=== PATIENT | female | born 1945 | race Caucasian/White ===

== ENCOUNTER 2016-12-31 18:03 | Observation (INO) | payer MEDICARE, OTHER ==
[~2016-12-31] VITALS: Ht 144.8 cm; Wt 67.9 kg
[2016-12-31 18:12] VITALS: BP 136/83; PULSE 89; RESP 18; O2SAT 95
--- NOTE | 2016-12-31 18:19 | ED.REPORT ---
HPI-Neurologic Deficit Date of Service Dec 31, 2016 ED Provider: Froilan Toledo MD Pt is a 71 year old female with a hx of HTN and Rheumatoid arthritis presenting to the ED complaining of sudden onset speech problems at 1730 tonight just after eating dinner. The pt was unable to speak at all. Her reports that she has been sick for the past week and a half, and has been fighting a foot ulcer. On arrival, she states that she feels better, and is able to speak. Her reports that she has had a previous similar episode in the past. Denies headache, numbness, or any other symptoms at this time. She does report that a few days ago she had an aura around her eyes which she states she gets when she has migraines, but denies any today. She denies being on any blood thinners, and does not take Aspirin daily. Pt regularly takes Lisinopril and Atenolol, but has been out of her high blood pressure medication for the past week. She denies any problems with bleeding ulcers or aneurysms in the past. Associated symptoms include fatigue, and problems finding the right words for the past couple weeks. Nursing Notes Stated Complaint: NEUROLIGICAL PROBLEMS Chief Complaint: Stroke Symptoms Nursing Notes Reviewed: Yes Allergies: Coded Allergies: morphine (Verified Allergy, Severe, ITCHY,DIFF WITH SWALLOWING, 05/05/09) Penicillins (Verified Allergy, Unknown, Rash,Itching,, 01/01/17) Scheduled Acetaminophen (Tylenol Arthritis) 650 Mg Tablet.er 650 MG PO QAM Acetaminophen (Tylenol Arthritis) 650 Mg Tablet.er 1,300 MG PO HS Atenolol (Atenolol) 25 Mg Tablet 25 MG PO QAM Doxylamine Succinate (Unisom) 25 Mg Tablet 25 MG PO HS Leflunomide (Leflunomide) 20 Mg Tablet 20 MG PO QAM Levothyroxine (Levothyroxine) 112 Mcg Tablet 112 MCG PO QAM Lisinopril (Lisinopril) 20 Mg Tablet 20 MG PO QAM General Time Seen by Provider: 18:11 Chief Complaint Other (Unable to speak) Hx Obtained From: Patient, Spouse Arrived By: Ambulance Sudden in Onset?: Yes Onset Occurred: 46 - 59 minutes ago Symptom Duration: Since onset Progression Since Onset: Rapidly improving Severity: Current: No pain currently Severity: Maximum: No pain Recent Healthcare: No recent doctor visit, No recent hospitalization Similar Sx Previous: Yes Risk Factors TPA Administration/Criteria Stroke Thrombolytic Therapy : TPA Considered: Yes Disc Risk/Benefit/Alternatives: Yes TPA Administered Intravenously: No, informed refusal Inclusion Criteria: 18 years or older Relative Exclusion Crit: Rapidly improv stroke sym Past Medical History Past Medical History HTN, Rheumatoid arthritis with foot ulcer Past Surgical History denies Smoking History Unknown if Ever Smoker Social History Other Social History: Good social support, Ambulatory Status Independent Review of Systems Constitutional: Reports: Fatigue Eyes: Denies: Blurred bilateral, Visual loss bilateral Neurologic: Reports: Unable to speak, Denies: Headache, Numbness, Slurred speech, Vision change Complete sys rev & neg: except as marked. Physical Exam Initial Vital Signs Vital Signs (First) Date Time Temp Pulse Resp B/P Pulse Ox O2 Delivery O2 Flow Rate FiO2 12/31/16 18:12 37.1 89 18 136/83 95 Room Air Initial VS: Reviewed ENT: Mucous membranes moist, Conjunctiva normal, No scleral icterus Neck: Supple, Non-tender, Full range of motion Abdomen / GI: Soft, Non-tender, No guarding, No rebound, No distention Extremities: Vascular intact, Neuro intact, No swelling, No tenderness Skin: Warm, Dry, No cyanosis Psychiatric: Mood/affect normal, Behavior normal, Normal thought content General/Constitutional: Awake, Alert, No acute distress, Well hydrated Head / Eyes: Atraumatic, Normocephalic, PERRL, EOMI, No nystagmus Right sided facial palsy Respiratory / Chest: Atraumatic, Breath sounds NL, Breath sounds = bilat, No respiratory distress Cardiovascular: Heart rate NL, Regular rhythm, Heart sounds NL, No gallop, No murmurs, No rubs Neurologic: Oriented X3, No motor deficits, No sensory deficits, CN II - XII intact, Reflexes equal bilat Interpretation & Diagnostics Interpretation & Diagnostics: CT ANGIO HEAD AND NECK: IMPRESSION: 1. No hemodynamically significant stenoses or occlusions of the central intracranial vasculature. 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 2. No hemodynamically significant lesions of the extracranial neck vasculature. Dictated by: Quentin Saini M.D. on 12/31/2016 at 19:54 Lab Results Interpretation Result Diagram: 12/31/16 1830 12/31/16 1830 Test 12/31/16 18:30 White Blood Count 6.2th/mm3 (3.8-10.1) Red Blood Count 3.80mil/mm3 (3.90-5.20) Hemoglobin 11.8g/dL (12.0-15.6) Hematocrit 35.6% (35.0-46.0) Mean Corpuscular Volume 93.7fL (81-100) Mean Corpuscular Hemoglobin 31.1pg (27.0-35.0) Mean Corpuscular Hemoglobin Concent 33.1% (32.0-37.0) Red Cell Distribution Width 14.3% (12.3-15.4) Platelet Count 206bil/L (150-400) Neutrophils (%) (Auto) 64.5% (40-74) Lymphocytes (%) (Auto) 20.5% (14-46) Monocytes (%) (Auto) 8.8% (4-12) Eosinophils (%) (Auto) 4.9% (0-5) Basophils (%) (Auto) 1.1% (0-3) Prothrombin Time 10.7sec (8.1-12.5) Prothromb Time International Ratio 1.00ratio Activated Partial Thromboplast Time 23.8sec (22.8-33.0) Sodium Level 137mEq/L (134-144) Potassium Level 4.3mEq/L (3.5-5.2) Chloride Level 101mEq/L (97-108) Carbon Dioxide Level 20mmol/L (18-29) Blood Urea Nitrogen 12mg/dL (8-27) Creatinine 0.76mg/dL (0.57-1.00) Estimat Glomerular Filtration Rate 107mL/min (>59) Glucose Level 127mg/dL (60-99) Calcium Level 8.7mg/dL (8.5-10.1) Magnesium Level 1.9mg/dL (1.6-2.6) Total Bilirubin 0.6mg/dL (0.0-1.2) Aspartate Amino Transf (AST/SGOT) 115U/L (0-50) Alanine Aminotransferase (ALT/SGPT) 91U/L (0-32) Alkaline Phosphatase 71U/L (25-165) Total Protein 6.4g/dL (6.4-8.4) Albumin 3.5g/dL (3.4-5.0) Procalcitonin 0.11ng/mL (0.00-0.08) Hold Parker Top Tube Received (Received) ECG Interpretation ECG Interpretation: Left axis deviation Time: 18:54 Normal ECG Interpretation: Normal rate (82), Normal sinus rhythm CT Head Interpretation IMPRESSION: No acute intracranial abnormalities. Findings were discussed with Dr. Toledo at 1827 hrs on December 31, 2016. This study fulfills neurological imaging criteria for inclusion or exclusion of acute stroke therapies based on available published neurological imaging guidelines. Dictated by: Quentin Saini M.D. on 12/31/2016 at 18:23 Study: Head CT no contrast Interpretation / Wet Read by: Interpret - Radiologist, Discussed w radiologist Re-Eval/Medical Decision Med Decision/Clinical Course 71 year old female with Rfacial droop and aphasia. Presented quickly after onset and was improving on presentation. After a lengthy discussion, we elected not to given TPA as she was improving rapidly. Also had an episode of recurrent "confusion" with trouble with word finding and orientation that resolved while here. Asprin given. Admit to hospitalist as TIA Re-Evaluation/Progress #1: Time of Eval: 18:23 Patient Status: Condition improved Re-Evaluation/Progress Note: Pt is back from CT. Pt states that she feels like she can talk fine now. Re-Evaluation/Progress #2: Time of Eval: 18:29 Patient Status: Condition improved Re-Evaluation/Progress Note: Performed NIH stroke scale. Had a long discussion of the risks and benefits associated with TPA. Family had numerous questions which were answered. Re-Evaluation/Progress #3: Time of Eval: 18:57 Patient Status: Condition improved Re-Evaluation/Progress Note: Checked back with the family and they indicate they wish not to have TPA but consent to further evaluation and admission. Re-Evaluation/Progress #4: Time of Eval: 20:18 Patient Status: Condition improved Re-Evaluation/Progress Note: Pt facial droop resolved. Discussed CT Angio results and plan for admission. Re-Evaluation/Progress #5: Time of Eval: 20:28 )( Re-Eval Neurologic Exam: Disoriented to place Patient Status: Condition improved Re-Evaluation/Progress Note: Pt is having some confusion. Definitely having some trouble with word finding, no motor difficulties noted. Re-Evaluation/Progress #6: Time of Eval: 20:59 Patient Status: Condition improved Re-Evaluation/Progress Note: Discussed consultation with Dr. Savage and plan to go ahead and admit her. Family reports that her symptoms have seemed to clear up again. NIH Stroke Scale : Level of Consciousness: Alert and responsive (0) Ask Month & Age: Both questions right (0) Open/Close Eyes/Hand Strip Tank Tender: Performs both tasks (0) Horizontal EO Movements: None (0) Visual Schaeffer: No visual loss (0) Facial Palsy: Minor paralysis (1) Right Arm Motor Drift (10s): No drift 10 sec (0) Left Arm Motor Drift (10s): No drift 10 sec (0) Right Leg Motor Drift (5s): No drift 5 sec (0) Left Leg Motor Drift (5s): No drift 5 sec (0) Limb Ataxia FNF/Heel-Arevalo: No ataxia (0) Sensation (Arms/Legs/Face): No sensory loss (0) Language Aphasia: Loss fluency ID matls (1) Dysarthria: No dysarthria, normal (0) Extinction/Inattention: No exctinct/inattent (0) NIHSS Score: 2 Time NIHSS Performed: 18:29 Consultation #1: Referral / Consult Name: Evonne Parada DO Consulted With: Hospitalist Call Returned at: 20:32 Note: Pt condition is changing, need to speak to [facility] before admission. Consultation #2: Consulted With: Neurology Call Returned at: 20:49 Note: Dr. Papi Savage at [facility]. Low probability of profound deficit, good recovery potential. TPA not definitely contraindicated but it does not seem to be likely to benefit. Consultation #3: Referral / Consult Name: vEonne Parada DO Consulted With: Hospitalist Call Returned at: 21:03 Quality Officer: Will see patient, Agrees with plan, Accepts admit Counseled Regarding: Diagnosis, Lab results, Need for follow-up, When/why to return to ED Discharge & Departure Impression: Primary Impression: Transient ischemic attack Transient cerebral ischemia type: unspecified Qualified Code: G45.9 - Transient cerebral ischemic attack, unspecified Disposition: ADMITTED TO HOSPITAL Discharge Condition All VS Reviewed: Yes Condition: Improved Referrals: Carlos Zapien MD Crit Care Except Billable Proc Time Spent: 30-74 minutes Services Performed: Patient management by me, Time spent at bedside, Reviewing test results, Reviewing imaging, Discussing patient care, Documentation in record, Time with fam/surrogate Scribe Attestation Portions of this note were transcribed by Latoya Eldridge. I, Dr. Toledo personally performed the history, physical exam and medical decision-making; I reviewed and confirmed the accuracy of the information in the transcribed note. Signed by : Cirilo Luu, 12/31/2016 at 2130. copies to: Carlos Zapien MD, Donald L MD Dec 31, 2016 18:19 LATOYA ELDRIDGE Dec 31, 2016 18:28
[2016-12-31 18:30] VITALS: BP 151/62; PULSE 90; RESP 18; O2SAT 98
--- NOTE | 2016-12-31 18:30 | DRSVH ---
PROCEDURE: CT BRAIN (TPA) ([id number]) INDICATIONS: 71 year-old female with aphasia. TECHNIQUE: Noncontrast 4.5 mm thick angled axial sections acquired from the foramen magnum to the vertex, with c oronal reformats. COMPARISON: None. FINDINGS: Image quality: Excellent. CSF spaces: Basal cisterns are patent. No extra-axial fluid collections. Ventricles are normal in size and shape. Brain: No midline shift. No intracranial masses or hemorrhage. [place]-white matter interface is norm al. Skull and face: Calvarium and visualized facial bones are intact, without suspicious lesions. 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 Sinuses: Visualized sinuses and mastoids are clear. IMPRESSION: No acute intracranial abnormalities. Findings were discussed with Dr. Toledo at 1827 hrs on December 31, 2016. This study fulfills neurological imaging criteria for inclusion or exclusion of acute stroke therapie s based on available published neurological imaging guidelines. Dictated by: Quentin Saini M.D. on 12/31/2016 at 18:23 Approved by: Quentin Saini M.D. on 12/31/2016 at 18:28
[2016-12-31 18:40] LABS: BASOPHILS % (AUTO) 1.1 % (0-3); EOSINOPHILS % (AUTO) 4.9 % (0-5); MONOCYTES % (AUTO) 8.8 % (4-12); Mean Corpuscular Hemoglobin 31.1 pg (27.0-35.0); Mean Corpuscular Volume 93.7 fL (81-100); NEUTROPHILS % (AUTO) 64.5 % (40-74); Platelet Count 206 bil/L (150-400)
[2016-12-31 19:04] LABS: TROPONIN T < 0.010 ug/L (0.0-0.011)
--- NOTE | 2016-12-31 20:09 | DRSVH ---
PROCEDURE: CT ANGIO HEAD AND NECK (P) INDICATIONS: 71 year-old female with right facial droop. TECHNIQUE: Pre-contrast 4.5 mm thick sections acquired from the foramen magnum to the vertex. After the adminis tration of intravenous contrast, 1 mm thick sections acquired from the aortic arch through the [place] of [place]. Post-contrast 4.5 mm thick sections then re-acquired from the foramen magnum to the vert ex. 3-dimensional [id number] (MIP) and/or volume rendering reformats were acquired of the central intracranial vasculature and neck separately. For radiation dose reduction, the foll owing was used: automated exposure control, adjustment of mA and/or kV according to patient size. COMPARISON: [facility], CT, BRAIN ([facility]), 12/31/2016, 18:20. FINDINGS: Image quality: Excellent. BRAIN: CSF spaces: Ventricles are normal in size and shape. Basal cisterns are patent. No extra-axial flu id collections. Brain: No midline shift. No intracranial bleeds or masses. [place]-white matter interface appears int act. Skull and face: Calvarium and facial bones appear intact, without suspicious lesions. Orbits appear normal. Sinuses: Sinuses and mastoids are clear. HEAD CT ANGIOGRAPHY: Anterior circulation: Intracranial internal carotid arteries are normal in size and flow. The flow within the paired anterior cerebral arteries is normal and symmetric. The flow within the middle cer ebral arteries is normal and symmetric. The anterior communicating artery is seen. No aneurysms are seen. Posterior circulation: Visualized portions of the vertebral arteries demonstrate normal caliber, and join to form a normal appearing basilar artery. The right vertebral artery is dominant. 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 No aneurysms are seen. NECK CT ANGIOGRAPHY: Carotid system: The great vessels demonstrate a conventional anatomy as they arise from the aortic a [facility]. The origins of the common carotid arteries appear patent. The common carotid arteries demonstr ate normal caliber and courses. The right carotid bifurcation appears widely patent. There is minimal atherosclerotic plaque at the origin of the left internal carotid artery. The internal carotid arter ies demonstrate normal calibers and courses more superiorly. Posterior circulation: The right vertebral artery is dominant. The origins of the vertebral arteries both appear widely patent. There is a direct aortic arch origin of the left vertebral artery, a vas cular anatomic variant. The more superior extracranial portions of both vertebral arteries demonstrat e normal courses. They join to form a normal appearing basilar artery. Soft tissues: Visualized neck soft tissues demonstrate no suspicious abnormalities. 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 No suspicious bony lesions. There is mild C4-C5 retrolisthesis from significant mid and lower cervical spine disc degeneration. IMPRESSION: 1. No hemodynamically significant stenoses or occlusions of the central intracranial vasculature. 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 2. No hemodynamically significant lesions of the extracranial neck vasculature. Dictated by: Quentin Saini M.D. on 12/31/2016 at 19:54 Approved by: Quentin Saini M.D. on 12/31/2016 at 20:07
[2016-12-31 21:42] VITALS: BP 154/72; PULSE 72; RESP 16; O2SAT 95
[2016-12-31] MEDS ORDERED: Alum-Mag Hydrox-Simeth 30 mL Suspension PO PRN ×2 (21:50→22:10)
[2016-12-31] MEDS ORDERED: Ondansetron 2 mg/mL 2 mL Inj IVPUSH PRN ×2 (21:50→22:10)
[2016-12-31] MEDS ORDERED: Polyethylene Glycol (PEG) 17 Gm Powder PO PRN (22:10)
[2016-12-31] MEDS ORDERED: ACET-2766 PO ×2 (22:16)
[2016-12-31] MEDS ORDERED: LISI-567 PO (22:16)
[2016-12-31] MEDS ORDERED: LEVO100T6 PO (22:16)
[2016-12-31 22:54] LABS: Magnesium 1.9 mg/dL (1.6-2.6)
--- NOTE | 2016-12-31 23:04 | NUR ---
Admit to room 3022 @ 22:00 for TIA. VSS sat'ing 95 on RA. Up SBA with FWW for last 2 weeks only as baseline ambulation is up independent. Oriented to room and POC on whiteboard. Fall hx 12/26, bedalarm on for safety, fall precautions posted, discussed with family. Alert and Oriented x3. Pain 0/10, no N/V. Call light within reach.
[2016-12-31 23:05] VITALS: BP 163/83; PULSE 73; RESP 18; O2SAT 97
[2016-12-31] MEDS ORDERED: LEFL20TA18 PO (23:17)
[2016-12-31] MEDS ORDERED: LEVO112T4 PO (23:17)
[2016-12-31] MEDS ORDERED: ATEN25TA PO (23:17)
[2016-12-31] MEDS ORDERED: DOXY25TA46 PO (23:18)
[2017-01-01] VITALS (8 sets, daily range): BP systolic 130–177; BP diastolic 78–97; PULSE 72–89; RESP 16–20; O2SAT 91–98
[2017-01-01 00:08] LABS: APPEARANCE,URINE CLEAR (CLEAR,HAZY); COLOR,URINE DARK YELLOW (YELLOW); OCCULT BLOOD,URINE NEGATIVE (NEGATIVE); UROBILINOGEN,URINE NORMAL (NORMAL)
--- NOTE | 2017-01-01 00:20 | PCM.HPMED ---
Subjective Date of Service Jan 01, 2017 Primary Provider: Admitting Physician: Evonne Parada DO Primary Care Physician: Carlos Zapien MD Attending Physician: Evonne Parada DO Admit Status: From the Emergency Department, Remote Telemetry Chief Complaint: "trouble talking" History of Present Illness: Mrs. Charlotte Castillo is a 71 year old woman with history of hypertension, rheumatoid arthritis, recurrent foot ulcers, and hypothyroidism who presented to the emergency department for trouble speaking that started this evening around 5:00 PM after eating dinner. She was not able to speak at all. This prompted her to take her to the hospital. She reports that when she was a child she would have episodes of trouble speaking with associated blurred vision. She denies numbness or tingling, blurred vision today, or focal weakness. She reported previous visual auras related to migraines a few days ago.Two weeks ago, her left foot developed an ulcer beneath her left pinky toe. It started to drain so she went to her doctor's office and was started on 2 antibiotics. One of the antibiotics contained penicillin. She developed a generalized itchy rash, so she stopped taking both antibiotics after less than a week. She then developed diarrhea about 1 week ago. She states that every time that she would eat or drink anything, then she would have a bowel movement. She decreased the amount that she ate and drank. She also became generally weak and started to need to use a walker to get around the house. Previously, she ambulated independently. She decided to stay with her sister so that her sister could take care of her. Her sister reports that the patient fell 1 week ago and hit the back of her head, and the patient has been shaking and has chills. She has been having trouble finding words for the past 1 week. She took Benadryl this morning because although her rash has improved, she still feels itchy. She is taking Imodium, which has stopped her diarrhea, and is drinking a lot of Gatorade. She had associated dysphagia today. She does not have headache, chest pain, dyspnea, sore throat, cough, abdominal pain, nausea, vomiting, dysuria, hematochezia, or melena. In the emergency department, her speech improved after she returned from the initial CT scan, and she initially had right sided facial droop on exam. TPA was then discussed with the family and they wished to not proceed with TPA. Her facial droop then later resolved. The patient then developed confusion and trouble with word finding, which also later resolved. Neurology at [facility] was consulted, and they recommended that TPA was not definitely contraindicated but it does not seem to be likely to benefit. NIHSS score at 18: 26 was 2. She was given a full dose aspirin 324 mg in the ED. PCP: Dr. Zapien Review of Systems: A comprehensive review of systems was conducted with the patient and found to be negative except as above in the History of Present Illness. Allergies Coded Allergies: morphine (Verified Allergy, Severe, ITCHY,DIFF WITH SWALLOWING, 05/05/09) Penicillins (Verified Allergy, Unknown, Rash,Itching,, 01/01/17) Home Medications Acetaminophen 650 mg once daily in the morning and 1,300 mg once daily at bedtime Atenolol 25 mg once daily in the morning Doxylamine succinate 25 mg once daily at bedtime Leflunomide 20 mg once daily in the morning Levothyroxine 112 mcg once daily in the morning Lisinopril 20 mg once daily in the morning Medications based on medication reconciliation performed by pharmacist in the hospital H Hypertension Rheumatoid arthritis, she follows with [facility] in [place], [place] Hypothyroidism Foot ulcers, history of prior MRSA right foot ulcer years ago that required surgical debridement Surgical History Bilateral total knee arthroplasty Cholecystectomy 20 years ago Appendectomy at 10 years old Family History Mother and father alive in good health, both are 94 years old Two sisters alive in good health Patient denies family history of heart disease and diabetes mellitus Social History Hx Alcohol Use: No Hx Substance Use: No Hx Tobacco Use: No Smoking Status: Former Smoker (quit 36 years ago), Unknown if Ever Smoker Living Arrangement: with Family (with at home) Exam Vital Signs Vital Sign - Last Date Time Temp Pulse Resp B/P Pulse Ox O2 Delivery O2 Flow Rate FiO2 12/31/16 23:05 36.3 73 18 163/83 97 Room Air Exam General: Elderly woman lying in bed in no acute distress, well-developed, well- nourished, appropriately interactive HEENT: Normocephalic, atraumatic. External ears without defect. Pupils equal, round, and reactive to light and accommodation. Anicteric sclerae, moist conjunctivae, and no lid lag. Oropharynx free of erythema and cobble stoning with moist mucosa. Neck: Supple with full range of motion. No jugular venous distension. No bruits. No lymphadenopathy or thyromegaly. Cardiovascular: Regular rate and rhythm with grade II/ systolic ejection murmur with no rubs or gallops appreciated. Pulmonary: Clear to auscultation bilaterally with no crackles, wheezes, or rhonchi. Normal respiratory effort with no use of accessory muscles. Abdomen: Hyperactive bowel tones present. Soft, Mild diffuse tenderness, nondistended. No hepatosplenomegaly or masses appreciated. Extremities: Severe bilateral hand ulnar deviation and bilateral hammer toes. Bilateral mild non-pitting edema of lower extremity up to the knee. Skin: Normal temperature, turgor, and texture. Left foot ulcers at base of 2nd MTP and 5th MTP that appear well healing without erythema, warmth, tenderness, or drainage. Neurological: Cranial nerves grossly intact. Grossly normal muscle strength, tone, and bulk. Coordination and sensory function within normal limits. Psychiatric: Normal mood and affect. Alert and oriented to person, place, and time. Lab and Diagnostics Labs Item Value Date Time Calcium Level 8.7 mg/dL 12/31/160 Total Bilirubin 0.6 mg/dL 12/31/160 Aspartate Amino Transf (AST/SGOT) 115 U/L H 12/31/16 1830 Alanine Aminotransferase (ALT/SGPT) 91 U/L H 12/31/16 1830 Alkaline Phosphatase 71 U/L 12/31/16 1830 Troponin T < 0.010 ug/L 12/31/161829 Total Protein 6.4 g/dL 12/31/16 1830 Albumin 3.5 g/dL 12/31/16 1830 Procalcitonin 0.11 ng/mL H 12/31/16 1830 Magnesium Level 1.9 mg/dL 12/31/161829 Urine Color Dark yellow 12/31/162339 Urine Appearance Clear 12/31/162339 Urine pH 5.0 12/31/160 Urine Specific [place] 1.010 12/31/162339 Urine Protein Negative mg/dL 12/31/162339 Urine Glucose (UA) Negative mg/dL 12/31/162339 Urine Ketones Negative mg/dL 12/31/162339 Urine Occult Blood Negative 12/31/162339 Urine Nitrite Negative 12/31/162339 Urine Bilirubin Negative 12/31/162339 Urine Leukocyte Esterase Negative 12/31/162339 Urine RBC 0-2 /hpf 12/31/162339 Urine WBC 0-5 /hpf 12/31/162339 Urine Bacteria Few /hpf 12/31/162339 Urine Culture Reflexed Not indicated 12/31/162339 Result Diagram: 12/31/16 1830 12/31/161829 X-Rays, CTs and MRIs PROCEDURE: CT BRAIN (TPA) IMPRESSION: No acute intracranial abnormalities. Findings were discussed with Dr. Toledo at 1827 hrs on December 31, 2016. This study fulfills neurological imaging criteria for inclusion or exclusion of acute stroke therapies based on available published neurological imaging guidelines. Approved by: Quentin Saini M.D. on 12/31/2016 at 18:28 PROCEDURE: CT ANGIO HEAD AND NECK IMPRESSION: 1. No hemodynamically significant stenoses or occlusions of the central intracranial vasculature. 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 2. No hemodynamically significant lesions of the extracranial neck vasculature. Approved by: Quentin Saini M.D. on 12/31/2016 at 20:07 12-lead ECG Left axis deviation Assessment & Plan Mrs. Charlotte Castillo is a 71 year old woman with history of hypertension, rheumatoid arthritis, recurrent foot ulcers, and hypothyroidism who presented to the emergency department for trouble speaking. Probable transient ischemic attack, present on admission, improved. - Pt represented to the hospital with transient dysphasia and facial droop that have resolved. CT angio head and neck showed no hemodynamically significant stenoses or occlusions of central intracranial vasculature or extracranial neck vasculature but pt has a congenital hypoplasia of right P1 segment. - Differential diagnosis includes but not limited to: TIA, CVA, complicated migraine with pt reporting a visual aura a few days ago , seizure disorder, encephalitis, metabolic encephalopathy, or medication side effect secondary to recent antihistamine and loperamide use - Pt is afebrile and does not have a leukocytosis. She does not have a history of seizures. Her BMP is within normal limits. - HgbA1c and lipid panel ordered - PT, OT, and speech evaluations ordered - Echocardiogram and MRI brain angiogram ordered per protocol - Aspirin 81 mg once daily for secondary prevention. Consider adding clopidogrel 75 mg once daily for dual antiplatelet therapy for secondary prevention. - Hold starting statin therapy as pt has elevated transaminases Generalized weakness, acute, present on admission, active. - Pt currently using a walker but prior to the past week was ambulating independently - Likely secondary to diarrhea below - Physical therapy as above - Continue to monitor Diarrhea, acute, present on admission, stable. - Pt has had diarrhea, which started after recent antibiotic use and improved after taking loperamide - Stool PCR ordered - Continue to monitor and consider imaging if worsening symptoms Elevated transaminases, present on admission. - Etiology uncertain. Pt had a cholecystectomy. Likely secondary to medications including daily acetaminophen and leflunomide - Pt does not report abdominal pain but has mild diffuse abdominal tenderness on exam - Continue to monitor with CMP and consider further assessment with hepatitis panel and/or imaging if continued diarrhea Recurrent foot ulcers, present on admission, active. - Pt reports that a left foot ulcer was actively draining 2 weeks ago, and she was started on 2 antibiotics but did not finish the course due to an allergic reaction. - Does not have active signs of infection on foot exam. Pt does not meet SIRS criteria - Continue to monitor Essential hypertension, chronic. - Hold home medications of lisinopril and atenolol for now to allow for permissive hypertension - Consider to resume home medications after MRI brain results are complete as above Rheumatoid arthritis, chronic. - Hold home lefunomide and acetaminophen for now due to elevated liver enzymes - Continue to monitor Hypothyroidism, chronic. - TSH and free T4 ordered - Continue home levothyroxine Insomnia, chronic. - Pt takes Unisom at bedtime, hold for now due to transient confusion - Started melatonin at bedtime Zofran as needed for nausea or vomiting. Senna and Miralax as needed for constipation. Maalox as needed for heartburn. Patient Status: Patient is admitted under observation status with expected length of stay less than 2 midnights due to risk of adverse event. CODE STATUS: FULL CODE VTE Prophylaxis: Sub-Q Heparin (Unfractionated) Resuscitation Status: CPR: Attempt Resuscitation Attending Statement The patient was seen and examined together with house staff on 12/31/2016 and I agree with the history, exam and plan as outlined in the note above. Sera Michael DO Jan 01, 2017 00:20 Evonne Parada DO Jan 01, 2017 04:03
--- NOTE | 2017-01-01 02:10 | NUR ---
Med Rec Patient unreliable historian. Medication Reconciliation completed by ED pharmacist using patients prescription medications taken home by family.
[2017-01-01 06:42] LABS: BASOPHILS % (AUTO) 1.6 % (0-3); MONOCYTES % (AUTO) 8.4 % (4-12); Mean Corpuscular Hemoglobin 31.3 pg (27.0-35.0); Mean Corpuscular Volume 94.5 fL (81-100); NEUTROPHILS % (AUTO) 61.7 % (40-74); Platelet Count 140 bil/L (150-400)
[2017-01-01] MEDS: Heparin 5,000 Unit/mL Inj SUBQ SCH ×2 (08:36→16:44)
--- NOTE | 2017-01-01 10:05 | NUR ---
Off Unit: Patient transported off unit to MRI via wheelchair accompanied by MRI staff @ approx 0845. technical designer notified. Notified by MRI staff that patient was not tolerating MRI. one time order received for Ativan to complete procedure. Ativan administered.
--- NOTE | 2017-01-01 10:44 | DRSVH ---
PROCEDURE: MRI BRAIN WITHOUT CONTRAST ([id number]) INDICATIONS: Right side facial droop,resolved, evaluate for tia TECHNIQUE: Non-contrast axial T1 spin echo, axial T2 fast spin echo, sagittal and axial FLAIR, coronal T2 fast s pin echo, axial gradient echo, axial diffusion and ADC through the brain. COMPARISON: [facility], CT, CT ANGIO BRAIN AND NECK, 12/31/2016, 19:30. [facility], CT, BRAIN (TPA), 12/31/2016, 18:20. FINDINGS: Image quality: Partially degraded by motion artifact. CSF spaces: Ventricles appear symmetric in size and shape. Basal cisterns are patent. No extra-axi al fluid collections. Brain: No intracranial bleeds or mass effects. There is cerebral volume loss for age. There are pe riventricular and deep white matter chronic small vessel ischemic changes. Brainstem appears normal. Diffusion-weighted images show no acute ischemic insults. No chronic ischemic insults. Normal int ravascular flow voids are present. Skull and face: Calvarial bone marrow is normal in signal. Orbits are normal. Sinuses: Sinuses and mastoids are clear. IMPRESSION: 1. No recent infarct. 2. Mild volume loss and small vessel ischemic disease. Dictated by: Greg Shelley M.D. on 01/01/2017 at 9:41 Approved by: Greg Shelley M.D. on 01/01/2017 at 9:43
--- NOTE | 2017-01-01 11:24 | NUR ---
Evaluation completed. Please go to "Notes" then click on "Assessments and Notes" (bottom left corner of screen). Then select appropriate discipline tab on top of screen.
--- NOTE | 2017-01-01 12:58 | NUR ---
Evaluation completed. Please go to "Notes" then click on "Assessments and Notes" (bottom left corner of screen). Then select appropriate discipline tab on top of screen.
[2017-01-01] MEDS: LEFLUNOMIDE 20 MG PO SCH (13:10)
--- NOTE | 2017-01-01 13:17 | PCM.PNMED ---
Subjective Date of Service Jan 01, 2017 Subjective She is seen today in her room to follow up the possible TIA, her severe rheumatoid arthritis and extremity deformities, hypertension and weakness. She is quite hard of hearing. Long Term through my visit her sister walks in and it is clear that she is the person "in charge". She has been consulting with her friend a retired electrical accessories ii assembler who suggested that vasculitis be ruled out. In that regard we have drawn an ESR and CRP, both of which were normal, which is truly remarkable given the degree of rheumatoid disease she has and her disabling hip pain. She has no residual swallowing, verbalization, extremity symptoms of the TIA. Exam Vital Signs Vital Sign - Last Date Time Temp Pulse Resp B/P Pulse Ox O2 Delivery O2 Flow Rate FiO2 01/01/17 11:09 37.0 79 16 156/79 97 Room Air Intake and Output 12/31/16 12/31/16 01/01/17 Cumulative From/Thru 15:00 23:00 07:00 12/31/16 23:15 - 01/01/17 06:19 Intake Total 0 ml 0 ml Output Total 330 ml 330 ml Balance -330 ml -330 ml Intake Oral 0 ml 0 ml Output Urine Total 330 ml 330 ml Exam On exam she is alert and oriented without apparent distress Heart is regular rate and rhythm without murmur Lungs are clear to auscultation bilaterally Extremities have no ankle edema She has severe rheumatoid arthritic deformities of the hands and feet with minimal functionality of the right hand and virtually none of the left. Babinski's are equivocal bilaterally Motor function is 3 out of 5 throughout, which appears to be her baseline. There is no tremor Cranial nerves II through XII tested intact She is hard of hearing Swallowing and speech appear to be intact at baseline. IVs and Medications Medications Reviewed: Medications were reviewed in detail Lab and Diagnostics Result Diagram: 01/01/17 0608 01/01/17 0608 X-Rays, CTs and MRIs PROCEDURE: CT BRAIN (TPA) IMPRESSION: No acute intracranial abnormalities. Findings were discussed with Dr. Toledo at 1827 hrs on December 31, 2016. This study fulfills neurological imaging criteria for inclusion or exclusion of acute stroke therapies based on available published neurological imaging guidelines. Approved by: Quentin Saini M.D. on 12/31/2016 at 18:28 PROCEDURE: CT ANGIO HEAD AND NECK IMPRESSION: 1. No hemodynamically significant stenoses or occlusions of the central intracranial vasculature. 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 2. No hemodynamically significant lesions of the extracranial neck vasculature. Approved by: Quentin Saini M.D. on 12/31/2016 at 20:07 12-lead ECG Left axis deviation Additional Diagnostics [facility] Diagnostic Imaging [place] [address] Patient Name: CHARLOTTE FRENCH MR#: [id number] [place] [facility] [place]ing Phys: Sera Michael DO Date of Service: 01/01/17 0800 PROCEDURE: MRI BRAIN WITHOUT CONTRAST ([id number]) INDICATIONS: Right side facial droop,resolved, evaluate for tia TECHNIQUE: Non-contrast axial T1 spin echo, axial T2 fast spin echo, sagittal and axial FLAIR, coronal T2 fast spin echo, axial gradient echo, axial diffusion and ADC through the brain. COMPARISON: [facility], CT, CT ANGIO BRAIN AND NECK, 12/31/2016, 19: 30. [facility], CT, BRAIN (TPA), 12/31/2016, 18:20. FINDINGS: Image quality: Partially degraded by motion artifact. CSF spaces: Ventricles appear symmetric in size and shape. Basal cisterns are patent. No extra-axial fluid collections. Brain: No intracranial bleeds or mass effects. There is cerebral volume loss for age. There are periventricular and deep white matter chronic small vessel ischemic changes. Brainstem appears normal. Diffusion-weighted images show no acute ischemic insults. No chronic ischemic insults. Normal intravascular flow voids are present. Skull and face: Calvarial bone marrow is normal in signal. Orbits are normal. Sinuses: Sinuses and mastoids are clear. IMPRESSION: 1. No recent infarct. 2. Mild volume loss and small vessel ischemic disease. Dictated by: Greg Shelley M.D. on 01/01/2017 at 9:41 Approved by: Greg Shelley M.D. on 01/01/2017 at 9:43 Assessment & Plan Mrs. Charlotte French is a 71 year old woman with history of hypertension, rheumatoid arthritis, recurrent foot ulcers, and hypothyroidism who presented to the emergency department for trouble speaking. Probable transient ischemic attack, present on admission, improved. - Pt represented to the hospital with transient dysphasia and facial droop that have resolved. CT angio head and neck showed no hemodynamically significant stenoses or occlusions of central intracranial vasculature or extracranial neck vasculature but pt has a congenital hypoplasia of right P1 segment. - Differential diagnosis includes but not limited to: TIA, CVA, complicated migraine with pt reporting a visual aura a few days ago , seizure disorder, encephalitis, metabolic encephalopathy, or medication side effect secondary to recent antihistamine and loperamide use - Pt is afebrile and does not have a leukocytosis. She does not have a history of seizures. Her BMP is within normal limits. - HgbA1c is pending with total cholesterol 153 and LDL of 90 - PT, OT, and speech evaluations ordered - Echocardiogram is pending - Aspirin 81 mg once daily for secondary prevention. Consider adding clopidogrel 75 mg once daily for dual antiplatelet therapy for secondary prevention. - Hold starting statin therapy as pt has elevated transaminases - Vasculitis unlikely with normal ESR and CRP today Generalized weakness, acute, present on admission, active. - Pt currently using a walker but prior to the past week was ambulating independently - Likely secondary to diarrhea below - Physical therapy and occupational therapy for ADL assistance. - Continue to monitor Diarrhea, acute, present on admission, stable. - Pt has had diarrhea, which started after recent antibiotic use and improved after taking loperamide - Stool PCR ordered - Continue to monitor and consider imaging if worsening symptoms Elevated transaminases, present on admission. - Etiology uncertain. Pt had a cholecystectomy. Likely secondary to medications including daily acetaminophen and leflunomide - Pt does not report abdominal pain but has mild diffuse abdominal tenderness on exam - Continue to monitor with CMP and consider further assessment with hepatitis panel and/or imaging if continued diarrhea Recurrent foot ulcers, present on admission, active. - Pt reports that a left foot ulcer was actively draining 2 weeks ago, and she was started on 2 antibiotics but did not finish the course due to an allergic reaction. - Does not have active signs of infection on foot exam on day of admission. Pt does not meet SIRS criteria - Continue to monitor, reexamined today and again there is no signs of ulcer. Essential hypertension, chronic. -Resume lisinopril and atenolol now that stroke has been ruled out on MRI today. Rheumatoid arthritis, chronic. - Hold home lefunomide and acetaminophen for now due to elevated liver enzymes - Continue to monitor - She told the nurse today that she has been using her 's Vicodin. She will need her own prescription at discharge Hypothyroidism, chronic. - TSH and free T4 ordered - Continue home levothyroxine Insomnia, chronic. - Pt takes Unisom at bedtime, hold for now due to transient confusion - Started melatonin at bedtime Zofran as needed for nausea or vomiting. Senna and Miralax as needed for constipation. Maalox as needed for heartburn. Disposition likely to home tomorrow after OT evaluation completed. Patient Status: Patient is admitted under observation status with expected length of stay less than 2 midnights due to risk of adverse event. CODE STATUS: FULL CODE VTE Prophylaxis: Sub-Q Heparin (Unfractionated) Resuscitation Status: CPR: Attempt Resuscitation Cony Winn MD Jan 01, 2017 13:17
--- NOTE | 2017-01-01 13:59 | NUR ---
MARCIANO explained and signed. Copy of TARIQ given to pt.
[2017-01-01] MEDS: HYDROcodone-APAP 5-325 mg Tablet PO PRN (15:52)
--- NOTE | 2017-01-01 16:34 | NUR ---
Social Work: Initial Assessment Data: Pt is a 71 y/o female admitted for TIA. Pt's PCP is Dr Zapien, pt's insurance is [employer] [place] Medicare. EMR reviewed, readmit score not listed. CARDIAC NURSE SPECIALIST met with pt and spouse at bedside, role explained. Pt states that she lives in [place] with her spouse at her sons home before they move to their new home in [place]. Pt uses a walker for the last 2 weeks, previously did not. Pt drives, has no hx of HH or SNF, no LTC or VA benefits. Pt is not a caregiver. PT met with pt today, stayed in room. CARDIAC NURSE SPECIALIST will continue to follow for possible HH or SNF need. Pt requested Senior Resource booklet, CARDIAC NURSE SPECIALIST will give to them tomorrow. CARDIAC NURSE SPECIALIST will continue to follow. Assessment: Pt who is independent at baseline. Plan: Pt will likely d/c home via POV with HH or with SNF, CARDIAC NURSE SPECIALIST will continue to follow. CARDIAC NURSE SPECIALIST to offer Senior Resources to pt. NESTOR Corcoran Addendum: 01/01/17 at 1639 by KINJAL REMY Amended: Links added.
[2017-01-01] MEDS ORDERED: DOXYLAMINE SUCCINATE 25 MG PO SCH (21:00)
[2017-01-02] VITALS (10 sets, daily range): BP systolic 133–181; BP diastolic 61–96; PULSE 67–86; RESP 16–18; O2SAT 94–96
[2017-01-02] MEDS: Heparin 5,000 Unit/mL Inj SUBQ SCH ×3 (00:59→16:51)
--- NOTE | 2017-01-02 06:08 | NUR ---
BP, Neuro: BP 181/85 this morning, pt to restart BP meds today. Neuro assessments completed. Speech clear although delayed as pt is very hard of hearing, bilateral extremities equal strength although weak due to rheumatoid arthritis.
[2017-01-02] MEDS: LEFLUNOMIDE 20 MG PO SCH (08:15)
--- NOTE | 2017-01-02 09:51 | NUR ---
Evaluation completed. Please go to "Notes" then click on "Assessments and Notes" (bottom left corner of screen). Then select appropriate discipline tab on top of screen.
--- NOTE | 2017-01-02 10:20 | NUR ---
Social Work-readiness for discharge: Data:EMR Reviewed. Pt is on day 2 of hospitalizations
--- NOTE | 2017-01-02 10:21 | PCM.PNMED ---
Subjective Date of Service Jan 02, 2017 Subjective 71 yo WF with PMHx of HTN, RA, foot ulcers, Hypothyroidism, She had some transient findings of facial droop and inabilityt o speak, latter of which is not entirely new. They declined tpA, all her scans are negative for stroke. She as not on aspirin prior to this admission. At 9AM, Patient states her facial droop and symptoms have resolved she has no new complaints still waiting for the echo to take place. At around 10AM, I got called to bed side as patient is exhibiting slurred speech , facial droop. NIHSS stroke scale of 2. Repeat CT Head wo was ordered. Patient states she ahs had prior episdoes such as this with migraines, she also has a hx of [place] palsy. Exam Vital Signs Vital Sign - Last Date Time Temp Pulse Resp B/P Pulse Ox O2 Delivery O2 Flow Rate FiO2 01/02/17 01:00 36.7 84 16 156/83 95 Room Air Intake and Output 01/01/17 01/01/17 01/02/17 Cumulative From/Thru 15:00 23:00 07:00 12/31/16 23:15 - 01/01/17 21:04 Intake Total 700 ml 700 ml Output Total 300 ml 630 ml Balance 400 ml 70 ml Intake Oral 700 ml 700 ml Output Urine Total 300 ml 630 ml # Bowel Movements 1 1 Exam Gen.: No acute distress: Severely disfigured hands and feet due to rheumatoid arthritis, she uses a walker at home Abdomen soft nontender nondistended Heart regular rate and rhythm no S3-S4 sounds Lungs clear to auscultation Neurological cranial nerves grossly unremarkable, with the exception of right sided facial droop and slurred speech. Pt able to perform finger to nose, alternatign hands, [id number] nt complete due to pts's underlying RA. Unable to obtain patellar reflexes, withdrew to babinski's, romberg's neg Extremities negative for edema IVs and Medications IV Fluids None Medications Reviewed: Medications were reviewed in detail Lab and Diagnostics Laboratory Tests Test 01/02/17 11:00 Sodium Level 136mEq/L (134-144) Potassium Level 4.1mEq/L (3.5-5.2) Chloride Level 100mEq/L (97-108) Carbon Dioxide Level 23mmol/L (18-29) Blood Urea Nitrogen 11mg/dL (8-27) Creatinine 0.69mg/dL (0.57-1.00) Estimat Glomerular Filtration Rate 120mL/min (>59) Glucose Level 107mg/dL (60-99) Calcium Level 8.7mg/dL (8.5-10.1) Total Bilirubin 0.3mg/dL (0.0-1.2) Aspartate Amino Transf (AST/SGOT) 21U/L (0-50) Alanine Aminotransferase (ALT/SGPT) 44U/L (0-32) Alkaline Phosphatase 59U/L (25-165) Total Protein 5.8g/dL (6.4-8.4) Albumin 3.5g/dL (3.4-5.0) Microbiology 01/01/17 Campylobacter (PCR) - Final, Complete Not Detected 01/01/17 Clostridium difficile Toxin A&B (M) - Final, Complete Not Detected 01/01/17 Plesiomonas shigelloides (PCR) - Final, Complete Not Detected 01/01/17 Salmonella (PCR)(HARRISON) - Final, Complete Not Detected 01/01/17 Yersinia enterocolitica (PCR) - Final, Complete Not Detected 01/01/17 Vibrio Species (PCR) - Final, Complete Not Detected 01/01/17 Vibrio Cholerae (PCR) - Final, Complete Not Detected 01/01/17 Enteroaggregative E. coli (PCR) - Final, Complete Not Detected 01/01/17 Enteropathogenic E. coli (PCR) - Final, Complete Not Detected 01/01/17 Enterotoxigenic E. coli (PCR) - Final, Complete Not Detected 01/01/17 E. coli Shiga-like Toxin (PCR) - Final, Complete Not Detected 01/01/17 Escherichia coli 0157 (PCR) - Final, Complete Not Detected 01/01/17 Enteroinvasive E. coli/Shigella PCR - Final, Complete Not Detected 01/01/17 Cryptosporidium (PCR) - Final, Complete Not Detected 01/01/17 Cyclospora cayetanensis (PCR) - Final, Complete Not Detected 01/01/17 Entamoeba histolytica (PCR) - Final, Complete Not Detected 01/01/17 Giardia lamblia (PCR) - Final, Complete Not Detected 01/01/17 Adenovirus Type F 40/41 (PCR) - Final, Complete Not Detected 01/01/17 Astrovirus (PCR) - Final, Complete Not Detected 01/01/17 Norovirus (PCR) - Final, Complete Not Detected 01/01/17 Rotavirus A (PCR) - Final, Complete Not Detected 01/01/17 Sapovirus I/II/IV/V (PCR) - Final, Complete Result Diagram: 01/01/17 0608 01/01/17 0608 X-Rays, CTs and MRIs PROCEDURE: CT BRAIN (TPA) IMPRESSION: No acute intracranial abnormalities. Findings were discussed with Dr. Toledo at 1827 hrs on December 31, 2016. This study fulfills neurological imaging criteria for inclusion or exclusion of acute stroke therapies based on available published neurological imaging guidelines. Approved by: Quentin Saini M.D. on 12/31/2016 at 18:28 PROCEDURE: CT ANGIO HEAD AND NECK IMPRESSION: 1. No hemodynamically significant stenoses or occlusions of the central intracranial vasculature. 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 2. No hemodynamically significant lesions of the extracranial neck vasculature. Approved by: Quentin Saini M.D. on 12/31/2016 at 20:07 [facility] Diagnostic [place] [address] PROCEDURE: CT BRAIN (TPA) ([id number]) INDICATIONS: SLURRED SPEECH IMPRESSION: No acute intracranial findings. This finding was relayed to Eze Zaragoza RN working with Dr. Garcia (who was in phone consultation with the outside neurologist at the time of the report) at 11:35 AM on 01/02/17. This study fulfills neurological imaging criteria for inclusion or exclusion of acute stroke therapies based on available published neurological guidelines. Dictated by: Yasmine Mosley M.D. on 01/02/2017 at 11:28 Approved by: Yasmine Mosley M.D. on 01/02/2017 at 11:43 12-lead ECG Left axis deviation Additional Diagnostics [facility] Diagnostic [place] [address] Patient Name: CHARLOTTE FRENCH MR#: [id number] Location: [facility] [place] Ordering Phys: Sera Michael DO Date of Service: 01/01/17 0800 PROCEDURE: MRI BRAIN WITHOUT CONTRAST ([id number]) INDICATIONS: Right side facial droop,resolved, evaluate for tia TECHNIQUE: Non-contrast axial T1 spin echo, axial T2 fast spin echo, sagittal and axial FLAIR, coronal T2 fast spin echo, axial gradient echo, axial diffusion and ADC through the brain. COMPARISON: [facility], CT, CT ANGIO BRAIN AND NECK, 12/31/2016, 19: 30. [facility], CT, BRAIN (TPA), 12/31/2016, 18:20. FINDINGS: Image quality: Partially degraded by motion artifact. CSF spaces: Ventricles appear symmetric in size and shape. Basal cisterns are patent. No extra-axial fluid collections. Brain: No intracranial bleeds or mass effects. There is cerebral volume loss for age. There are periventricular and deep white matter chronic small vessel ischemic changes. Brainstem appears normal. Diffusion-weighted images show no acute ischemic insults. No chronic ischemic insults. Normal intravascular flow voids are present. Skull and face: Calvarial bone marrow is normal in signal. Orbits are normal. Sinuses: Sinuses and mastoids are clear. IMPRESSION: 1. No recent infarct. 2. Mild volume loss and small vessel ischemic disease. Dictated by: Greg Shelley M.D. on 01/01/2017 at 9:41 Approved by: Greg Shelley M.D. on 01/01/2017 at 9:43 Assessment & Plan Mrs. Charlotte French is a 71 year old woman with history of hypertension, rheumatoid arthritis, recurrent foot ulcers, and hypothyroidism who presented to the emergency department for trouble speaking. Probable transient ischemic attack, present on admission, improved. - Differential diagnosis includes but not limited to: TIA, CVA, complicated migraine with pt reporting a visual aura a few days ago , seizure disorder, encephalitis, metabolic encephalopathy, or medication side effect secondary to recent antihistamine and loperamide use -- Patient has a hx of migraines that caused similar symptoms in the past, [place]' [place] palsy which may have caused some facial drooping at baseline. - Pt represented to the hospital with transient dysphasia and facial droop that have resolved. CT angio head and neck showed no hemodynamically significant stenoses or occlusions of central intracranial vasculature or extracranial neck vasculature but pt has a congenital hypoplasia of right P1 segment. - HgbA1c 5.4 total cholesterol 153 and LDL of 90 - PT, OT, and speech evaluations ordered - Aspirin 81 mg once daily for secondary prevention. - Vasculitis unlikely with normal ESR and CRP - Discussed discharge following Echo read but d/c withheld after patient exhibited slurred speech - Repeat CT was non acute on 01/02 AM, was ordered due to acute slurred sppech - Discussed case with Nidia Malone of [facility], who did not recommend tpA for NIHSS score of 2-3 (pt forgot own age at one pt and scored an extra point). She asked for all images to be pushed to her, which ahs been done. She is also aware of congenital R P1 hypoplasia. She recommends an EEG, this has been ordered and performed. Pending a procedure result. -- Dr. Malone also recommends starting pt on statin and simply following LFT. Generalized weakness, acute, present on admission, active. - Pt currently using a walker but prior to the past week was ambulating independently - Likely secondary to diarrhea, stool PCR is negative - Physical therapy and occupational therapy for ADL assistance. - Continue to monitor Diarrhea, acute, present on admission, stable. - Pt has had diarrhea, which started after recent antibiotic use and improved after taking loperamide - Stool PCR ordered: Neg - Continue to monitor and consider imaging if worsening symptoms Elevated transaminases, present on admission. Improving - Etiology uncertain. Pt had a cholecystectomy. Likely secondary to medications including daily acetaminophen and leflunomide - Pt does not report abdominal pain but has mild diffuse abdominal tenderness on exam - Continue to monitor with CMP and consider further assessment with hepatitis panel and/or imaging if continued diarrhea Recurrent foot ulcers, present on admission, active. - Pt reports that a left foot ulcer was actively draining 2 weeks ago, and she was started on 2 antibiotics but did not finish the course due to an allergic reaction. - Does not have active signs of infection on foot exam on day of admission. Pt does not meet SIRS criteria - Continue to monitor, reexamined today and again there is no signs of ulcer. Essential hypertension, chronic active -Resume lisinopril and atenolol now that stroke has been ruled out on MRI. Rheumatoid arthritis, chronic active. - Continue home lefunomide - She told the nurse today that she has been using her 's Vicodin. She will need her own prescription at discharge Hypothyroidism, chronic. active - TSH and free T4 ordered - Continue home levothyroxine Insomnia, chronic. active - Pt takes Unisom at bedtime, hold for now due to transient confusion - Started melatonin at bedtime Zofran as needed for nausea or vomiting. Senna and Miralax as needed for constipation. Maalox as needed for heartburn. Disposition likely to home tomorrow after OT evaluation completed. Patient Status: Patient is admitted under observation status with expected length of stay less than 2 midnights due to risk of adverse event. CODE STATUS: FULL CODE VTE Prophylaxis: Sub-Q Heparin (Unfractionated) Resuscitation Status: CPR: Attempt Resuscitation Time spent 45 min spent with initial visit, discussion of case with [facility] and re- reamination of pt Isaura Garcia DO Jan 02, 2017 05:32
--- NOTE | 2017-01-02 10:22 | NUR ---
Social Work-readiness for discharge: Data:EMR Reviewed. Pt is on day 2 of hospitalization for TIA per H&P. Pt is likely medically stable later today or tomorrow. PT/ST/OT have cleared pt for home no needs. Pt resides at home with her spouse. Pt and spouse updated and agreeable to plan. SW will continue to follow. Assessment:Pt who is independent at baseline. Plan:Pt to discharge home when medically stable via POV. PT/ST/OT have cleared pt for home no needs.SW will continue to follow. NESTOR Olguin
--- NOTE | 2017-01-02 10:48 | NUR ---
Neuro Patient noted to have slight R sided facial drooping which has now worsened. Last time of norm was 1000. Noted to have increased slurring. No change in hand planer stone. Noted weakness in RLE. See VSS. Blood sugar 99. No tongue deviation. No change in LOC. MD notified. Orders received for stat CT of brain. MD at bedside.
--- NOTE | 2017-01-02 11:21 | NUR ---
Code Stroke: Reported that patient having slurred speech, notified, stat CT brain ordered, CODE Stroke called. VSS, BG 99. Patient transported to CT dept @ approx 1110 via bed, wet process technician notified, SR 66. Addendum: 01/02/17 at 1522 by JAYY HAYWARD RN On reassessment, after patient returned from CT, Rt facial droop and slurred speech resolved. Patient stating "I feel fine". Frequent rounding in place to monitor for neurological status.
--- NOTE | 2017-01-02 11:44 | DRSVH ---
PROCEDURE: CT BRAIN (TPA) ([id number]) INDICATIONS: SLURRED SPEECH TECHNIQUE: Noncontrast 4.5 mm thick angled axial sections acquired from the foramen magnum to the vertex, with c oronal reformats. COMPARISON: [facility], CT, BRAIN (TPA), 12/31/2016, 18:20. FINDINGS: Image quality: Moderate. CSF spaces: Basal cisterns are patent. No extra-axial fluid collections. The ventricles are symmet toro in size and shape. Brain: No intracranial bleeds or masses. There is cerebral volume loss for age, with resultant vent ricular and sulcal prominence. There are periventricular and deep white matter chronic small vessel ischemic changes. There is intracranial internal carotid artery atherosclerosis. Skull and face: Calvarium and visualized facial bones appear intact, without suspicious lesions. Sinuses: Visualized sinuses and mastoids are clear. IMPRESSION: No acute intracranial findings. This finding was relayed to Eze Zaragoza RN working with Dr. Garcia (who was in phone consultation with the outside neurologist at the time of the report) at 11:35 AM on 01/02/17. This study fulfills neurological imaging criteria for inclusion or exclusion of acute stroke therapie s based on available published neurological guidelines. Dictated by: Yasmine Mosley M.D. on 01/02/2017 at 11:28 Approved by: Yasmine Mosley M.D. on 01/02/2017 at 11:43
[2017-01-02] MEDS: HYDROcodone-APAP 5-325 mg Tablet PO PRN (16:53)
--- NOTE | 2017-01-02 17:30 | NUR ---
Family Concerns: Patients sister called to express concerns regarding the patients recent antibiotic use and onset of symptoms. Sister gave an extremely detailed description of what the patient has been experiencing, including weakness, falls, diarrhea, "sleeping all the time", word searching, since she began a dual antibiotic therapy (Doxycycline, Amoxicillin) on December 19 through December 23. Sister also states that patient has "numb spells" "aura" that she has had over lifetime. MD notified of concerns.
[2017-01-03] VITALS (8 sets, daily range): BP systolic 142–179; BP diastolic 74–95; PULSE 65–80; RESP 18; O2SAT 93–98
[2017-01-03] MEDS: Heparin 5,000 Unit/mL Inj SUBQ SCH ×3 (01:21→17:34)
--- NOTE | 2017-01-03 03:24 | NUR ---
Neuro, Activity: Neuro assessment has been WNL thus far this shift. Speech and thoughts clear, no facial droop. Pt has ambulated to the bathroom several times tonight with stand by, minimal one assist. Pt states feeling "good" and denies generalized weakness.
[2017-01-03] MEDS: LEFLUNOMIDE 20 MG PO SCH (07:47)
--- NOTE | 2017-01-03 12:59 | DRSVH ---
[facility] [address] [place] [address] Echocardiogram Report Name: ANIL FRENCH Date: 01/03/2017 Height: 57 in Hospital Exam Location: [facility] Weight: 148 lb Gender: Female BSA: 1.6 m2 : 1945 Age: 71 yrs BP: 160/85 m mHg Reason For Study: TIA Ordering Physician: GIANFRANCOIST [facility] Performed By: Soni Barone Referring Physician: Jose Luis Crane Interpretation Summary The ejection fraction is estimated to be 55-60%. Injection of contrast documented no interatrial shunt. There is no significant valvular heart disease. Procedure: A two-dimensional transthoracic echocardiogram with color flow and Doppler was performed. The study quality was technically adequate. There is no prior echocardiogram noted for this patient. A saline contrast injection was performed to assess for cardiac shunting. The patient was in normal sinus rhythm during the exam. Left Ventricle: The left ventricle is normal in size. There is no thrombus. The ejection fraction is estimated to be 55-60%. There are no focal wall motion abnormalities. Spectral Doppler of the mitral inflow yields an E/A ratio that is between 0.8 and 1.5. Right Ventricle: The right ventricle is normal size. Atria: Both atria are normal in size. There is no Doppler evidence for an interatrial shunt. Injection of contrast documented no interatrial shunt. Mitral Valve: The mitral valve is normal in structure and function. There is trace mitral regurgitation. Aortic Valve: The aortic valve is trileaflet. The aortic valve opens well. There is trace aortic regurgitation. Tricuspid Valve: The tricuspid valve is normal in structure and function. There is a trace or physiologic amount of tricuspid regurgitation. The right ventricular systolic pressure is estimated at 25 mmHg assuming a right atrial pressure of 3 mm Hg. Pulmonic Valve: The pulmonic valve is not well seen, but is grossly normal. There is a trace or physiologic amount of pulmonic regurgitation. Great Vessels: The aortic root is normal size. The ascending aorta is normal in size. The aortic arch is normal in size. The IVC is of normal diameter and collapses greater than 50% with a sniff. This suggests a low right atrial pressure of 3 mm Hg. Pericardium/ Pleura There is no pericardial effusion. MMode/2D Measurements & Calculations LVIDd: 3.9 cm LA dimension: 3.7 cm RA long axis LVOT diam: 2.0 cm LVIDs: 2.5 cm AoV Opening FS: 36.8 % LA A2 area: 17.4 cm RA area EPSS: 0.27 cm LA A4 area: 15.4 cm Ao root diam IVSd: 1.1 cm LA length (vol) : 14.0 cm LVPWd: 1.1 cm RA vol Aortic Jxn: 2.4 cm LA vol: 53.3 ml : 33.8 ml asc Aorta Diam LA vol index RA : 21.4 mm2 Ao Arch Diam (Prox Trans): 2.8 cm IVC diam: 1.7 cm LV bales. diameter/BSA LV sys. diameter/BSA RVD1 (basal) RVD2 (mid): 2.2 cm (cm/m^2): 2.5 (cm/m^2): 1.6 TAPSE: 1.8 cm Doppler Measurements & Calculations Ao V2 max MV E max percy MV E/A: 0.88 TR max percy : 139.3 cm/sec : 74.7 cm/sec Med Peak E' Percy : 233.1 cm/sec Ao max P.8 mmHgMV A max percy TR max PG Ao mean PG : 85.3 cm/sec E/E' med: 11.2 : 21.7 mmHg MV P1/2t: 71.0 msec PA V2 max LVOT Max Eprcy : 86.8 cm/sec : 111.4 cm/sec PA mean PG JEYSON(I,D): 2.6 cm PA Accel Time sev ratio: 0.81 : 0.15 sec AI P1/2t : 723.8 msec AI dec slope : 175.7 cm/s2c MV dec time MV P1/2t max percy Ao V2 mean LV V1 max PG : 0.24 sec : 96.5 cm/sec MVA(P1/2t): 3.1 cm2 Ao V2 VTI: 32.6 cmLV V1 VTI JEYSON(V,D): 2.5 cm2 : 26.3 cm PA V2 mean JEYSON indexed to BSA : 56.9 cm/sec (cm^2/m^2): 1.6 Electronically signed by: Jean Uribe on Reading Physician:01/03/2017 12:59 PM
--- NOTE | 2017-01-03 14:58 | PROCED ---
[address] [address] EEG PATIENT: ANIL FRENCH : 1945 MR#: [id number] ADMIT: 12/31/2016 JOB ID: [id number] DATE: 12/31/2016 HISTORY: The patient is a 71-year-old woman with a history of a new onset of aphasia for the past one week. TECHNICAL DESCRIPTION: This digital EEG was recorded using 25 scalp and ear, and two EKG electrodes. It was reviewed in bipolar and referential montages following the reformatting in the 10-20 [employer] Electrode Placement System. During the recording, the patient was noted to be awake and drowsy. No sleep was appreciated. She did appear to be tense throughout the study and was restless with intermittent myogenic and movement artifact. Glimpses of the background revealed a posterior dominant rhythm of 7 hertz, 10-20 microvolts that did appear symmetrical reactive to eye opening. The rest of the background was composed of a polymorphic mixture of delta and theta rhythms. There were no focal, lateralized, or epileptiform discharges noted. There were intermittent 1-2 hertz runs of symmetrical high amplitude delta, which were generalized in nature. There were no epileptiform discharges noted. There were no seizures seen. Hyperventilation was not performed. Photic stimulation from 1-30 hertz did not elicit any photic response. The EKG rhythm strip revealed a heart rate of 60-120 beats per minute with no apparent arrhythmias. No sleep was appreciated. IMPRESSION: This electroencephalogram performed in the awake and drowsy states is abnormal. The slow background for age in addition to the generalized 1-2 hertz of rhythmic high amplitude delta activity is suggestive of mild cerebral cortical dysfunction/encephalopathy. This is a nonspecific finding and may be seen in a wide variety of different clinical conditions, including toxic, metabolic, hypoxic, inflammatory, autoimmune and infectious states. Clinical correlation is advised.
[2017-01-03] MEDS: HYDROcodone-APAP 5-325 mg Tablet PO PRN (17:37)
--- NOTE | 2017-01-03 18:04 | NUR ---
Neuro/pain Neurologically pt has been WNL, no deficits. A&OX4. WADE. Pt c/o 12/17 shoulder pain that was relieved by 5mg Kress.
[2017-01-04 00:39] VITALS: BP 152/82; PULSE 68; RESP 18; O2SAT 96
[2017-01-04] MEDS: Heparin 5,000 Unit/mL Inj SUBQ SCH ×2 (01:46→08:07)
[2017-01-04 05:11] VITALS: BP 148/79; PULSE 70; RESP 18; O2SAT 97
[2017-01-04] MEDS ORDERED: TOPI50TA32 PO (06:03)
--- NOTE | 2017-01-04 06:16 | NUR ---
Neuro: Neuro assessments have been WNL. Pt alert and oriented x3, using call light appropriately and ambulating to the bathroom with stand by assist.
[2017-01-04] MEDS ORDERED: ASPI325T32 PO (07:46)
[2017-01-04] MEDS: LEFLUNOMIDE 20 MG PO SCH (08:05)
[2017-01-04] MEDS ORDERED: ACET500C49 PO (08:24)
--- NOTE | 2017-01-04 08:28 | PCM.DIMED ---
Discharge Instructions Date of Service Jan 04, 2017 Dates of Hospitalization Dec 31, 2016 at 21:05 Discharge Diagnosis Discharge Diagnosis Seizure, Complex migraine, RA, HTN, Hypothyroidism Diet Discharge Diet: Heart Healthy Activity Discharge Activity: Other (Please do not drive a motor vehicle until cleared by a neurologist) Call your provider Call your provider for: Fever or Chills, Shortness of breath, Bleeding, Chest pain, Vomitting, Excessive diarrhea, Weakness (unilateral), Other Patient Instructions Patient Instructions New medication topomax is started Please do not drive Please take aspirin daily Follow-up plan Please f/u with PCP in 1-2 weeks Please f/u with [facility] in 1-2 weeks Isaura Garcia DO Jan 04, 2017 08:28
[2017-01-04] MEDS ORDERED: LISI-567 PO ×2 (08:32→08:33)
[2017-01-04] MEDS ORDERED: LISI10TA PO (08:35)
[2017-01-04 09:33] VITALS: BP 143/85; PULSE 59; RESP 18; O2SAT 94
--- NOTE | 2017-01-04 10:03 | NUR ---
Social Work-discharge: Data:EMR Reviewed. Pt is on day 4 of hospitalization for TIA per H&P. Pt is medically stable for discharge. PT/ ST/OT have cleared pt for home no needs. Pt has been up independent in her room. Pt's family to provide transport home. No discharge needs identified. All updated and agreeable to plan. Assessment:Pt who is independent at baseline. Plan:Pt to discharge home today via POV. No discharge needs identified. All updated and agreeable to plan. NESTOR Olguin
--- NOTE | 2017-01-04 10:16 | PCM.DC.MED ---
Discharge Summary Date of Service Jan 04, 2017 Dates of Hospitalization Date of Hospital Admission Dec 31, 2016 at 21:05 Date of Discharge: Jan 04, 2017 Providers: Admitting Physician: Eric Florence DO Primary Care Physician: Carlos Zapien MD Attending Physician: Eric Florence DO Diagnosis at Time of Discharge Diagnosis at Time of Discharge Seizure, Complex migraine, RA, HTN, Hypothyroidism Consultations [facility], Dr. Munoz Procedures XRay, CTs & MRIs PROCEDURE: CT BRAIN (TPA) IMPRESSION: No acute intracranial abnormalities. Findings were discussed with Dr. Toledo at 1827 hrs on December 31, 2016. This study fulfills neurological imaging criteria for inclusion or exclusion of acute stroke therapies based on available published neurological imaging guidelines. Approved by: Quentin Saini M.D. on 12/31/2016 at 18:28 PROCEDURE: CT ANGIO HEAD AND NECK IMPRESSION: 1. No hemodynamically significant stenoses or occlusions of the central intracranial vasculature. 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 2. No hemodynamically significant lesions of the extracranial neck vasculature. Approved by: Quentin Saini M.D. on 12/31/2016 at 20:07 [facility] Diagnostic Imaging Department [place], [place] [id number] PROCEDURE: CT BRAIN (TPA) ([id number]) INDICATIONS: SLURRED SPEECH IMPRESSION: No acute intracranial findings. This finding was relayed to Eze Zaragoza RN working with Dr. Florence (who was in phone consultation with the outside neurologist at the time of the report) at 11:35 AM on 01/02/17. This study fulfills neurological imaging criteria for inclusion or exclusion of acute stroke therapies based on available published neurological guidelines. Dictated by: Yasmine Mosley M.D. on 01/02/2017 at 11:28 Approved by: Yasmine Mosley M.D. on 01/02/2017 at 11:43 ECG 12 Lead Left axis deviation Cardiac Echo Impression [facility] Diagnostic Imaging Department [place], [place] [id number] Patient Name: ANIL CASTILLO MR#: [id number] Location: [facility] Ordering Phys: Sera Michael DO Date of Service: 01/03/17 0800 [facility] [address] [place] [address] Echocardiogram Report Name: ANIL CASTILLO Date: 01/03/2017 Height: 57 in Hospital Exam Location: [facility] Weight: 148 lb Gender: Female BSA: 1.6 m2 : 1945 Age: 71 yrs BP: 160/85 m mHg Reason For Study: TIA Ordering Physician: [facility]PITAL[facility] Performed By: Soni Barone Referring Physician: Jose Luis Crane Interpretation Summary The ejection fraction is estimated to be 55-60%. Injection of contrast documented no interatrial shunt. There is no significant valvular heart disease. Procedure: A two-dimensional transthoracic echocardiogram with color flow and Doppler was performed. The study quality was technically adequate. There is no prior echocardiogram noted for this patient. A saline contrast injection was performed to assess for cardiac shunting. The patient was in normal sinus rhythm during the exam. Left Ventricle: The left ventricle is normal in size. There is no thrombus. The ejection fraction is estimated to be 55-60%. There are no focal wall motion abnormalities. Spectral Doppler of the mitral inflow yields an E/A ratio that is between 0.8 and 1.5. Right Ventricle: The right ventricle is normal size. Atria: Both atria are normal in size. There is no Doppler evidence for an interatrial shunt. Injection of contrast documented no interatrial shunt. Mitral Valve: The mitral valve is normal in structure and function. There is trace mitral regurgitation. Aortic Valve: The aortic valve is trileaflet. The aortic valve opens well. There is trace aortic regurgitation. Tricuspid Valve: The tricuspid valve is normal in structure and function. There is a trace or physiologic amount of tricuspid regurgitation. The right ventricular systolic pressure is estimated at 25 mmHg assuming a right atrial pressure of 3 mm Hg. Pulmonic Valve: The pulmonic valve is not well seen, but is grossly normal. There is a trace or physiologic amount of pulmonic regurgitation. Great Vessels: The aortic root is normal size. The ascending aorta is normal in size. The aortic arch is normal in size. The IVC is of normal diameter and collapses greater than 50% with a sniff. This suggests a low right atrial pressure of 3 mm Hg. Pericardium/ Pleura There is no pericardial effusion. MMode/2D Measurements & Calculations LVIDd: 3.9 cm LA dimension: 3.7 cm RA long axis LVOT diam: 2.0 cm LVIDs: 2.5 cm AoV Opening FS: 36.8 % LA A2 area: 17.4 cm RA area EPSS: 0.27 cm LA A4 area: 15.4 cm Ao root diam IVSd: 1.1 cm LA length (vol) : 14.0 cm LVPWd: 1.1 cm RA vol Aortic Jxn: 2.4 cm LA vol: 53.3 ml : 33.8 ml asc Aorta Diam LA vol index RA : 21.4 mm2 Ao Arch Diam (Prox Trans): 2.8 cm IVC diam: 1.7 cm LV bales. diameter/BSA LV sys. diameter/BSA RVD1 (basal) RVD2 (mid): 2.2 cm (cm/m^2): 2.5 (cm/m^2): 1.6 TAPSE: 1.8 cm Doppler Measurements & Calculations Ao V2 max MV E max percy MV E/A: 0.88 TR max percy : 139.3 cm/sec : 74.7 cm/sec Med Peak E' Percy : 233.1 cm/sec Ao max P.8 mmHgMV A max percy TR max PG Ao mean PG : 85.3 cm/sec E/E' med: 11.2 : 21.7 mmHg MV P1/2t: 71.0 msec PA V2 max LVOT Max Percy : 86.8 cm/sec : 111.4 cm/sec PA mean PG JEYSON(I,D): 2.6 cm PA Accel Time sev ratio: 0.81 : 0.15 sec AI P1/2t : 723.8 msec AI dec slope : 175.7 cm/s2c MV dec time MV P1/2t max percy Ao V2 mean LV V1 max PG : 0.24 sec : 96.5 cm/sec MVA(P1/2t): 3.1 cm2 Ao V2 VTI: 32.6 cmLV V1 VTI JEYSON(V,D): 2.5 cm2 : 26.3 cm PA V2 mean JEYSON indexed to BSA : 56.9 cm/sec (cm^2/m^2): 1.6 Electronically signed by: Jean Uribe on Reading Physician:01/03/2017 12:59 PM [facility] [address] [address] EEG PATIENT: ANIL CASTILLO : 1945 MR#: [id number] ADMIT: 12/31/2016 JOB ID: [id number] DATE: 12/31/2016 HISTORY: The patient is a 71-year-old woman with a history of a new onset of aphasia for the past one week. TECHNICAL DESCRIPTION: This digital EEG was recorded using 25 scalp and ear, and two EKG electrodes. It was reviewed in bipolar and referential montages following the reformatting in the 10-20 International Electrode Placement System. During the recording, the patient was noted to be awake and drowsy. No sleep was appreciated. She did appear to be tense throughout the study and was restless with intermittent myogenic and movement artifact. Glimpses of the background revealed a posterior dominant rhythm of 7 hertz, 10-20 microvolts that did appear symmetrical reactive to eye opening. The rest of the background was composed of a polymorphic mixture of delta and theta rhythms. There were no focal, lateralized, or epileptiform discharges noted. There were intermittent 1-2 hertz runs of symmetrical high amplitude delta, which were generalized in nature. There were no epileptiform discharges noted. There were no seizures seen. Hyperventilation was not performed. Photic stimulation from 1-30 hertz did not elicit any photic response. The EKG rhythm strip revealed a heart rate of 60-120 beats per minute with no apparent arrhythmias. No sleep was appreciated. IMPRESSION: This electroencephalogram performed in the awake and drowsy states is abnormal. The slow background for age in addition to the generalized 1-2 hertz of rhythmic high amplitude delta activity is suggestive of mild cerebral cortical dysfunction/encephalopathy. This is a nonspecific finding and may be seen in a wide variety of different clinical conditions, including toxic, metabolic, hypoxic, inflammatory, autoimmune and infectious states. Clinical correlation is advised. Wilton Munoz MD 01/03/17 1350 Report status: Draft Transcribed by: OBED 01/03/17 1457 REPORT#: [id number] cc: Carlos Zapien MD; Wilton Munoz MD [id number] Attending Provider: Eric Florence DO Patient Name: ANIL CASTILLO Primary Care Provider: Carlos Zapien MD MR #: [id number] Page #: PROCEDURE: MRI BRAIN WITHOUT CONTRAST ([id number]) INDICATIONS: Right side facial droop,resolved, evaluate for tia TECHNIQUE: Non-contrast axial T1 spin echo, axial T2 fast spin echo, sagittal and axial FLAIR, coronal T2 fast spin echo, axial gradient echo, axial diffusion and ADC through the brain. COMPARISON: [facility], CT, CT ANGIO BRAIN AND NECK, 12/31/2016, 19: 30. [facility], CT, BRAIN (TPA), 12/31/2016, 18:20. FINDINGS: Image quality: Partially degraded by motion artifact. CSF spaces: Ventricles appear symmetric in size and shape. Basal cisterns are patent. No extra-axial fluid collections. Brain: No intracranial bleeds or mass effects. There is cerebral volume loss for age. There are periventricular and deep white matter chronic small vessel ischemic changes. Brainstem appears normal. Diffusion-weighted images show no acute ischemic insults. No chronic ischemic insults. Normal intravascular flow voids are present. Skull and face: Calvarial bone marrow is normal in signal. Orbits are normal. Sinuses: Sinuses and mastoids are clear. IMPRESSION: 1. No recent infarct. 2. Mild volume loss and small vessel ischemic disease. Dictated by: Greg Shelley M.D. on 01/01/2017 at 9:41 Approved by: Greg Shelley M.D. on 01/01/2017 at 9:43 Brief History Mrs. Anil Castillo is a 71 year old woman with history of hypertension, rheumatoid arthritis, recurrent foot ulcers, and hypothyroidism who presented to the emergency department for trouble speaking that started this evening around 5:00 PM after eating dinner. She was not able to speak at all. This prompted her to take her to the hospital. She reports that when she was a child she would have episodes of trouble speaking with associated blurred vision. She denies numbness or tingling, blurred vision today, or focal weakness. She reported previous visual auras related to migraines a few days ago.Two weeks ago, her left foot developed an ulcer beneath her left pinky toe. It started to drain so she went to her doctor's office and was started on 2 antibiotics. One of the antibiotics contained penicillin. She developed a generalized itchy rash, so she stopped taking both antibiotics after less than a week. She then developed diarrhea about 1 week ago. She states that every time that she would eat or drink anything, then she would have a bowel movement. She decreased the amount that she ate and drank. She also became generally weak and started to need to use a walker to get around the house. Previously, she ambulated independently. She decided to stay with her sister so that her sister could take care of her. Her sister reports that the patient fell 1 week ago and hit the back of her head, and the patient has been shaking and has chills. She has been having trouble finding words for the past 1 week. She took Benadryl this morning because although her rash has improved, she still feels itchy. She is taking Imodium, which has stopped her diarrhea, and is drinking a lot of Gatorade. She had associated dysphagia today. She does not have headache, chest pain, dyspnea, sore throat, cough, abdominal pain, nausea, vomiting, dysuria, hematochezia, or melena. In the emergency department, her speech improved after she returned from the initial CT scan, and she initially had right sided facial droop on exam. TPA was then discussed with the family and they wished to not proceed with TPA. Her facial droop then later resolved. The patient then developed confusion and trouble with word finding, which also later resolved. Neurology at [facility] was consulted, and they recommended that TPA was not definitely contraindicated but it does not seem to be likely to benefit. NIHSS score at 18: 26 was 2. She was given a full dose aspirin 324 mg in the ED. PCP: Dr. Zapien [facility] Mrs. Anil Castillo is a 71 year old woman with history of hypertension, rheumatoid arthritis, recurrent foot ulcers, and hypothyroidism who presented to the emergency department for trouble speaking. 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 - Pt represented to the hospital with transient dysphasia and facial droop that have resolved. CT angio head and neck showed no hemodynamically significant stenoses or occlusions of central intracranial vasculature or extracranial neck vasculature but pt has a congenital hypoplasia of right P1 segment. - HgbA1c 5.4 total cholesterol 153 and LDL of 90 - PT, OT, and speech evaluations ordered - Aspirin 81 mg once daily for secondary prevention. - Vasculitis unlikely with normal ESR and CRP - Discussed discharge following Echo read but d/c withheld after patient exhibited slurred speech - Repeat CT was non acute on 01/02 AM, was ordered due to acute slurred sppech - Discussed case with Nidia Malone of [facility], who did not recommend tpA for NIHSS score of 2-3 (pt forgot own age at one pt and scored an extra point). She asked for all images to be pushed to her, which ahs been done. She is also aware of congenital R P1 hypoplasia. She recommends an EEG, this has been ordered and performed. EEG showed encephalopathic activity, Dr. Munoz came and saw the pt, told her she ahd a seizure. She is started on topomax for complex migraines, she is asked to f/u with [facility] neurology for both complex migraines and seizures. -- As final diagnosis is seizure vs complex migraine, we will hold off on statin for now. (Pt has elevated transaminases at admission). Her neurologist can decide if a statin is called for. We recommended that pt takes daily asa. -- EEG findings consistent with encephalopathy per Dr. Munoz, he visited patient and told her she may have had a seizure, asked her not to drive a motor vehicle. -- We have started her on topomax for complex migraines. -- She is asked to f/u with [facility] neurology in [place]. -- On the day of d/c, patient has had no neurological changes, tolerating normal diet and wanting to go home. Generalized weakness, acute, present on admission, resolved - Pt currently using a walker but prior to the past week was ambulating independently - Likely secondary to diarrhea, stool PCR is negative - Physical therapy and occupational therapy for ADL assistance. Diarrhea, acute, present on admission, resolved - Pt has had diarrhea, which started after recent antibiotic use and improved after taking loperamide - Stool PCR ordered: Neg - Continue to monitor and consider imaging if worsening symptoms Elevated transaminases, present on admission. mostly resolved - Etiology uncertain. Pt had a cholecystectomy. Likely secondary to medications including daily acetaminophen and leflunomide -- ASked to pt to cut HS tylenol dose, she is taking 1300 mg, way above recommended dose of 1 g. Recurrent foot ulcers, present on admission, active. - Pt reports that a left foot ulcer was actively draining 2 weeks ago, and she was started on 2 antibiotics but did not finish the course due to an allergic reaction. - Does not have active signs of infection on foot exam on day of admission. Pt does not meet SIRS criteria - Continue to monitor, reexamined today and again there is no signs of ulcer. Essential hypertension, chronic active -Resume lisinopril and atenolol now that stroke has been ruled out on MRI. -- She is asked take Lisinopril 10 mg PO HS to better control her Bp Rheumatoid arthritis, chronic active. - Continue home lefunomide Hypothyroidism, chronic. active - Continue home levothyroxine Insomnia, chronic. active - She may take home meds at discharge Zofran as needed for nausea or vomiting. Senna and Miralax as needed for constipation. Maalox as needed for heartburn. Disposition likely to home tomorrow after OT evaluation completed. Patient Status: Patient is admitted under observation status with expected length of stay less than 2 midnights due to risk of adverse event. CODE STATUS: FULL CODE Exam Vital Signs (Last) Date Time Temp Pulse Resp B/P Pulse Ox O2 Delivery O2 Flow Rate FiO2 01/04/17 05:11 36.0 70 18 148/79 97 Room Air Exam Gen.: No acute distress: Severely disfigured hands and feet due to rheumatoid arthritis, she uses a walker at home Abdomen soft nontender nondistended Heart regular rate and rhythm no S3-S4 sounds Lungs clear to auscultation Neurological cranial nerves grossly unremarkable, with the exception of right sided facial droop and slurred speech. Pt able to perform finger to nose, alternatign hands, [id number] nt complete due to pts's underlying RA. Unable to obtain patellar reflexes, withdrew to babinski's, romberg's neg Extremities negative for edema Test 12/31/16 18:30 12/31/16 23:40 01/01/17 06:08 01/01/17 08:58 Prothrombin Time 10.7sec (8.1-12.5) Prothromb Time International Ratio 1.00ratio Activated Partial Thromboplast Time 23.8sec (22.8-33.0) Hemoglobin A1c 5.4% (4.8-5.6) Magnesium Level 1.9mg/dL (1.6-2.6) Procalcitonin 0.11ng/mL (0.00-0.08) Hold Parker Top Tube Received (Received) Urine Color Dark yellow (YELLOW) Urine Appearance Clear (CLEAR,HAZY) Urine pH 5.0 (5.0-8.0) Urine Specific [place] 1.010 (1.003-1.035) Urine Protein Negativemg/dL (NEG,TRACE) Urine Glucose (UA) Negativemg/dL (NEGATIVE) Urine Ketones Negativemg/dL (NEGATIVE) Urine Occult Blood Negative (NEGATIVE) Urine Nitrite Negative (NEGATIVE) Urine Bilirubin Negative (NEGATIVE) Urine Urobilinogen Normalmg/dL (NORMAL) Urine Leukocyte Esterase Negative (NEGATIVE) Urine RBC 0-2/hpf (0-2) Urine WBC 0-5/hpf (0-5) Urine Epithelial Cells Moderate/hpf (NONE-MOD) Urine Crystals None seen (NONE SEEN) Urine Bacteria Few/hpf (NONE-FEW) Urine Hyaline Casts None/lpf (NONE) Urine Granular Casts None seen (NONE SEEN) Urine Waxy Casts None seen (NONE SEEN) Urine Red Blood Cell Casts None seen (NONE SEEN) Urine White Blood Cell Casts None seen (NONE SEEN) Urine Mucus None seen (None Seen) Urine Trichomonas None seen (NONE SEEN) Urine Yeast None (NONE SEEN) Urinalysis Comment None Urine Culture Reflexed Not indicated White Blood Count 3.8th/mm3 (3.8-10.1) Red Blood Count 3.84mil/mm3 (3.90-5.20) Hemoglobin 12.0g/dL (12.0-15.6) Hematocrit 36.3% (35.0-46.0) Mean Corpuscular Volume 94.5fL (81-100) Mean Corpuscular Hemoglobin 31.3pg (27.0-35.0) Mean Corpuscular Hemoglobin Concent 33.1% (32.0-37.0) Red Cell Distribution Width 14.2% (12.3-15.4) Platelet Count 140bil/L (150-400) Neutrophils (%) (Auto) 61.7% (40-74) Lymphocytes (%) (Auto) 22.0% (14-46) Monocytes (%) (Auto) 8.4% (4-12) Eosinophils (%) (Auto) 6.0% (0-5) Basophils (%) (Auto) 1.6% (0-3) Triglycerides Level 138mg/dL (0-149) Cholesterol Level 153mg/dL (100-199) LDL Cholesterol, Calculated 90.400mg/dL (0-99) VLDL Cholesterol 27.600mg/dL HDL Cholesterol 35mg/dL (>39) Cholesterol/HDL Ratio 4.37 (0.0-4.4) Thyroid Stimulating Hormone (TSH) 1.430uIU/mL (0.450-4.500) Free Thyroxine 1.32ng/dL (0.82-1.77) Troponin T 0.010ug/L (0.0-0.011) Test 01/01/17 10:58 01/02/17 11:00 Erythrocyte Sedimentation Rate 12mm/hr (0-40) C-Reactive Protein 0.1mg/dL (0.0-0.5) Sodium Level 136mEq/L (134-144) Potassium Level 4.1mEq/L (3.5-5.2) Chloride Level 100mEq/L (97-108) Carbon Dioxide Level 23mmol/L (18-29) Blood Urea Nitrogen 11mg/dL (8-27) Creatinine 0.69mg/dL (0.57-1.00) Estimat Glomerular Filtration Rate 120mL/min (>59) Glucose Level 107mg/dL (60-99) Calcium Level 8.7mg/dL (8.5-10.1) Total Bilirubin 0.3mg/dL (0.0-1.2) Aspartate Amino Transf (AST/SGOT) 21U/L (0-50) Alanine Aminotransferase (ALT/SGPT) 44U/L (0-32) Alkaline Phosphatase 59U/L (25-165) Total Protein 5.8g/dL (6.4-8.4) Albumin 3.5g/dL (3.4-5.0) Discharge Medications Discharge Medications Acetaminophen (Tylenol Arthritis) 650 Mg Tablet.er 650 MG PO QAM (Reported) Acetaminophen (Acetaminophen) 500 Mg Capsule 1,000 MG PO HS Prescribed by: ERIC FLORENCE DO Aspirin (Aspirin) 325 Mg Tablet 325 MG PO DAILY Prescribed by: ERIC FLORENCE DO Atenolol (Atenolol) 25 Mg Tablet 25 MG PO QAM (Reported) Doxylamine Succinate (Unisom) 25 Mg Tablet 25 MG PO HS (Reported) Leflunomide (Leflunomide) 20 Mg Tablet 20 MG PO QAM (Reported) Levothyroxine (Levothyroxine) 112 Mcg Tablet 112 MCG PO QAM (Reported) Lisinopril (Lisinopril) 20 Mg Tablet 20 MG PO DAILY Prescribed by: ERIC FLORENCE DO Lisinopril (Lisinopril) 10 Mg Tablet 10 MG PO QPM Prescribed by: ERIC FLORENCE DO Topiramate (Topamax) 50 Mg Tablet 50 MG PO BID Prescribed by: ERIC FLORENCE DO Followup Plan Follow-up plan Please f/u with PCP in 1-2 weeks Please f/u with [facility]rology in 1-2 weeks Discharge Diet: Heart Healthy Discharge Activity: Other (Please do not drive a motor vehicle until cleared by a neurologist) Patient Instructions New medication topomax is started Please do not drive Please take aspirin daily Time spent 35 min Eric Florence DO Jan 04, 2017 08:29
--- NOTE | 2017-01-04 11:00 | NUR ---
DISCHARGE Pt dc'd home at 1045, off unit in w/c accompanied by SWEAT BAND SEPARATOR and pt's family. Vital signs stable, A&O, denies any pain and in no apparent distress. IV dc'd intact, all belongings returned including home medication. All instructions for diet, activity, medications, prescriptions and follow up reviewed with pt who reports understanding.
--- NOTE | 2017-01-04 21:32 | PCM.PNMED ---
Subjective Date of Service Jan 03, 2017 Subjective Patient is seen and examined. She is given the results of her last CT scan, they were updated with discussions with [facility] neurology. EEG has not been read yet, echo result not out yet. She states she is back to her baseline. No other concerns Exam Vital Signs Vital Sign - Last Date Time Temp Pulse Resp B/P Pulse Ox O2 Delivery O2 Flow Rate FiO2 01/03/17 05:45 36.0 74 18 160/85 98 Room Air Intake and Output 01/02/17 01/02/17 01/03/17 Cumulative From/Thru 15:00 23:00 07:00 12/31/16 23:15 - 01/02/17 18:49 Intake Total 400 ml 520 ml 1620 ml Output Total 350 ml 100 ml 1080 ml Balance 50 ml 420 ml 540 ml Intake Oral 400 ml 520 ml 1620 ml Output Urine Total 350 ml 100 ml 1080 ml # Voids 2 2 # Bowel Movements 0 3 4 Exam Gen.: No acute distress Severely disfigured hands and feet due to rheumatoid arthritis, she uses a walker at home Abdomen soft nontender nondistended Heart regular rate and rhythm no S3-S4 sounds Lungs clear to auscultation Neurological cranial nerves grossly unremarkable Extremities negative for edema IVs and Medications IV Fluids None Medications Reviewed: Medications were reviewed in detail Lab and Diagnostics Result Diagram: 01/01/17 0608 01/02/17 1100 X-Rays, CTs and MRIs PROCEDURE: CT BRAIN (TPA) IMPRESSION: No acute intracranial abnormalities. Findings were discussed with Dr. Toledo at 1827 hrs on December 31, 2016. This study fulfills neurological imaging criteria for inclusion or exclusion of acute stroke therapies based on available published neurological imaging guidelines. Approved by: Quentin Saini M.D. on 12/31/2016 at 18:28 PROCEDURE: CT ANGIO HEAD AND NECK IMPRESSION: 1. No hemodynamically significant stenoses or occlusions of the central intracranial vasculature. 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 2. No hemodynamically significant lesions of the extracranial neck vasculature. Approved by: Quentin Saini M.D. on 12/31/2016 at 20:07 [facility] [place] [address] PROCEDURE: CT BRAIN (TPA) ([id number]) INDICATIONS: SLURRED SPEECH IMPRESSION: No acute intracranial findings. This finding was relayed to Eze Zaragoza RN working with Dr. Garcia (who was in phone consultation with the outside neurologist at the time of the report) at 11:35 AM on 01/02/17. This study fulfills neurological imaging criteria for inclusion or exclusion of acute stroke therapies based on available published neurological guidelines. Dictated by: Yasmine Mosley M.D. on 01/02/2017 at 11:28 Approved by: Yasmine Mosley M.D. on 01/02/2017 at 11:43 12-lead ECG Left axis deviation Additional Diagnostics [facility] Diagnostic [place] [address] Patient Name: CHARLOTTE FRENCH MR#: [id number] Location: [facility] Ordering Phys: Sera Michael DO Date of Service: 01/01/17 0800 PROCEDURE: MRI BRAIN WITHOUT CONTRAST ([id number]) INDICATIONS: Right side facial droop,resolved, evaluate for tia TECHNIQUE: Non-contrast axial T1 spin echo, axial T2 fast spin echo, sagittal and axial FLAIR, coronal T2 fast spin echo, axial gradient echo, axial diffusion and ADC through the brain. COMPARISON: [facility], CT, CT ANGIO BRAIN AND NECK, 12/31/2016, 19: 30. [facility], CT, BRAIN (TPA), 12/31/2016, 18:20. FINDINGS: Image quality: Partially degraded by motion artifact. CSF spaces: Ventricles appear symmetric in size and shape. Basal cisterns are patent. No extra-axial fluid collections. Brain: No intracranial bleeds or mass effects. There is cerebral volume loss for age. There are periventricular and deep white matter chronic small vessel ischemic changes. Brainstem appears normal. Diffusion-weighted images show no acute ischemic insults. No chronic ischemic insults. Normal intravascular flow voids are present. Skull and face: Calvarial bone marrow is normal in signal. Orbits are normal. Sinuses: Sinuses and mastoids are clear. IMPRESSION: 1. No recent infarct. 2. Mild volume loss and small vessel ischemic disease. Dictated by: Greg Shelley M.D. on 01/01/2017 at 9:41 Approved by: Greg Shelley M.D. on 01/01/2017 at 9:43 Assessment & Plan Mrs. Charlotte French is a 71 year old woman with history of hypertension, rheumatoid arthritis, recurrent foot ulcers, and hypothyroidism who presented to the emergency department for trouble speaking. 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 - Pt represented to the hospital with transient dysphasia and facial droop that have resolved. CT angio head and neck showed no hemodynamically significant stenoses or occlusions of central intracranial vasculature or extracranial neck vasculature but pt has a congenital hypoplasia of right P1 segment. - HgbA1c 5.4 total cholesterol 153 and LDL of 90 - PT, OT, and speech evaluations ordered - Aspirin 81 mg once daily for secondary prevention. - Vasculitis unlikely with normal ESR and CRP - Discussed discharge following Echo read but d/c withheld after patient exhibited slurred speech on 01/02 - Repeat CT was non acute on 01/02 AM, was ordered due to acute slurred speech - Discussed case with Dr. Nidia Malone of [facility] on 01/02, who did not recommend tpA for NIHSS score of 2-3 (pt forgot own age at one pt and scored an extra point). She asked for all images to be pushed to her, which ahs been done. She is also aware of congenital R P1 hypoplasia. She recommends an EEG, this has been ordered and performed. Pending a procedure result. -- Dr. Malone also recommends starting pt on statin and simply following LFT if there is high suspicion for TIA. -- Contacted Dr. Malone on 01/03, she advises an EEG, start pt on antiepileptic if there is enough concern for a seizure. -- Discussed case with Dr. Munoz later in the day, who feels there are findings consistent w/encephalopathy on patient's EEG read. HE agrees to visit with the patient. We appreciate his time and recommendation. He aslo says to start pt on topamax for complex migraines, she can f/u with [facility]. Generalized weakness, acute, present on admission, resolved - Pt currently using a walker but prior to the past week was ambulating independently - Likely secondary to diarrhea, stool PCR is negative - Physical therapy and occupational therapy for ADL assistance. - Continue to monitor Diarrhea, acute, present on admission, resolved - Pt has had diarrhea, which started after recent antibiotic use and improved after taking loperamide - Stool PCR ordered: Neg Elevated transaminases, present on admission. Improving - Etiology uncertain. Pt had a cholecystectomy. Likely secondary to medications including daily acetaminophen and leflunomide - Pt does not report abdominal pain but has mild diffuse abdominal tenderness on exam - Continue to monitor with CMP and consider further assessment with hepatitis panel and/or imaging if continued diarrhea Recurrent foot ulcers, present on admission, active. - Pt reports that a left foot ulcer was actively draining 2 weeks ago, and she was started on 2 antibiotics but did not finish the course due to an allergic reaction. - Does not have active signs of infection on foot exam on day of admission. Pt does not meet SIRS criteria - Continue to monitor, reexamined today and again there is no signs of ulcer. Essential hypertension, chronic active -Resume lisinopril and atenolol now that stroke has been ruled out on MRI. Rheumatoid arthritis, chronic active. - Continue home lefunomide Hypothyroidism, chronic. active - TSH and free T4 ordered - Continue home levothyroxine Insomnia, chronic. active - Pt takes Unisom at bedtime, hold for now due to transient confusion - Started melatonin at bedtime Zofran as needed for nausea or vomiting. Senna and Miralax as needed for constipation. Maalox as needed for heartburn. Disposition likely to home tomorrow after OT evaluation completed. Patient Status: Patient is admitted under observation status with expected length of stay less than 2 midnights due to risk of adverse event. CODE STATUS: FULL CODE VTE Prophylaxis: Sub-Q Heparin (Unfractionated) Resuscitation Status: CPR: Attempt Resuscitation Time spent 30 min Isaura Garcia DO Jan 03, 2017 05:57
== END 2017-01-04 10:54 | disposition home or self-care (01) ==
LOC: SED 18:03 → MPC 21:05
PROVIDERS: ADMIT Family Medicine; ATTEND Family Medicine
DX: R56.9 Unspecified convulsions (principal); G43.809 Other migraine, not intractable, without status migrainosus; M06.9 Rheumatoid arthritis, unspecified; I10 Essential (primary) hypertension; E03.9 Hypothyroidism, unspecified; L97.929 Non-pressure chronic ulcer of unspecified part of left lower leg with unspecified severity; G45.9 Transient cerebral ischemic attack, unspecified; R47.81 Slurred speech; R29.810 Facial weakness; R47.02 Dysphasia; G47.00 Insomnia, unspecified; Z87.891 Personal history of nicotine dependence; R19.7 Diarrhea, unspecified; R53.1 Weakness
CPT/HCPCS: 36415; 70450; 70496; 70498; 70551; 80053; 80061; 81000; 82948; 83036; 83735; 84145; 84439; 84443; 84484; 85025; 85610; 85651; 85730; 86140; 87507; 92610; 93005; 95819; 96374; 97161; 97166; 99291; C8929; G0378; G8978; G8979; G8980; G8996; G8997; J1644; J2060; Q9967